=== PATIENT | male | born 1980 | race Caucasian/White ===

== ENCOUNTER 2025-04-24 17:26 | Emergency (ER) | payer BC, SELFPAY ==
--- NOTE | 2025-04-24 17:32 | EKG_ITS ---
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
[2025-04-24 17:41] VITALS: BP 160/101; PULSE 93; RESP 19; TEMP 36.9; O2SAT 95
--- NOTE | 2025-04-24 17:59 | XR_ITS ---
Examination: CT brain head without contrast. 2-D sagittal coronal reconstructions Date and time of exam: April 24, 2025, 1812 hours INDICATIONS: Dizziness and nausea episodes today CTDI: vol (mGy): 53.8 DLP: (mGycm): 1108 Technique: Multiple CT axial sections of the brain have been obtained, 5 mm slice thickness. Contrast has not been administered. 2-D sagittal, coronal reconstructions have been obtained Low dose protocols were performed. One or more of the following dose reduction techniques were used; automated exposure control, adjustment of the mA and/or KV according to patient size, use of iterative reconstruction technique. Findings: No significant ventricular enlargement. Intra-axial or extra-axial hemorrhage density is not seen. No mass effect or midline shift Basal cisterns are not remarkable. Fourth ventricle is midline. Cranial vault intact. Impression: Negative for acute hemorrhage, mass effect or midline shift Advise clinical correlation and follow-up accordingly
--- NOTE | 2025-04-24 18:01 | PD.EDADULT ---
ED General RME/HPI General Chief complaint: Syncope / Near Syncope Stated complaint: Syncope in car Time Seen by Provider: 04/24/25 18:05 Arrival date/time: 04/24/25 17:26 RME / HPI RME / HPI narrative: Mannei is a 45 y/o male with PMHx of HTN who comes in for evaluation of new onset of syncope, duration of 4-5 seconds, while he was in the car, with associated nausea and weakness and headache. Pt reports that he has never had this before and that he was at a car show earlier and that he had dinner earlier as well. He did have presyncopal feelings of weakness and nausea before he had passed out. He came to the ER with his to get further evaluated. Denies any history of seizures or previous strokes. He does say that he has pain with certain eye movements, particularly upright gaze. He says the symptoms are all new to him. He is not taking any medicines at this time. No other complaints at this time. Related Data Previous Rx's ?Medication ?Instructions ?Recorded levetiracetam 500 mg tablet 500 mg PO BID #30 tabs 04/24/25 (Keppra) Allergies Allergy/AdvReac Type Severity Reaction Status Date / Time No Known Allergies Allergy Verified 04/24/25 17:31 Review of Systems Review of Systems Narrative Review of Systems: 12 point ROS reviewed and is otherwise negative unless stated directly in the HPI ED Exam Narrative Physical exam: General: AAOx3, NAD, HEENT: Moist mucous membranes, conjunctiva clear, EOMI, PERRLA, Cardiovascular: S1, S2, radial pulses +2 bilat, RRR Pulmonary: CTAB bilat no cough, no wheezing GI: No tenderness to light or deep palpitation, no guarding, rigidity, rebound tenderness or distension Extremities: No presence of trace or pitting edema in lower extremities bilaterally, dorsalis pedis pulses +2 bilaterally Neuro: AAOx3, no focal motor or sensory deficits in the UE or LE bilat, some paint with upright gaze bilat Psych: Good judgement, thought and behavior Course Quality Measures none Orders Category Date Time Status CT Screening NOW Care 04/24/25 19:40 Completed EKG (ED ONLY) *Do not use* NOW Care 04/24/25 17:33 Completed Insert IV NOW Care 04/24/25 18:00 Completed Orthostatic Vitals X1 Care 04/24/25 17:[address] angio carotid w head w Stat Exams 04/24/25 19:[address] head/brain wo con Stat Exams 04/24/25 17:59 Completed EKG (ED Only) Stat Exams 04/24/25 17:32 Draft CBC Stat Lab 04/24/25 18:25 Completed CMP [Comprehensive Metabolic Panel] Stat Lab 04/24/25 18:25 Completed Drug Screen,Urine Stat Lab 04/24/25 20:03 Completed Mag [Magnesium] Stat Lab 04/24/25 18:25 Completed Phosphorous Stat Lab 04/24/25 18:25 Completed Urinalysis, C/S if Indicated Stat Lab 04/24/25 20:03 Completed Midazolam Inj [Versed Inj] Med 04/24/25 19:41 Discontinued 1 mg IVP X1 ONE Ondansetron Odt [Zofran Odt] Med 04/24/25 17:59 Discontinued 4 mg PO X1 ONE Sodium Chloride 0.9% 1000 ml [Ns] 1,000 ml Med 04/24/25 18:05 Discontinued IV 999 mls/hr levETIRAcetam INJ [Keppra Inj] Med 04/24/25 21:21 Discontinued 1,000 mg IVP X1 ONE Vital Signs Vital signs: Vital Signs Temperature 98.4 F 04/24/25 17:41 Pulse Rate 93 04/24/25 17:41 Respiratory Rate 19 04/24/25 17:41 Blood Pressure 160/101 H 04/24/25 17:41 Pulse Oximetry (%) 95 04/24/25 17:41 Oxygen Delivery Method Room Air 04/24/25 17:41 Discharge Plan Plan Patient Disposition: HOME (Self Care) Discharge Disposition comment: stable Prescriptions/Referrals Prescriptions/Med Rec: New levetiracetam [Keppra] 500 mg tablet 500 mg PO BID Qty: 30 0RF Referrals: Saman Farooq MD [Primary Care Provider, Family Practice] - In 1 week Frantz Dias MD [Physician, Neurology] - In 1 week Referral Note: Patient with new onset seizure placed on Keppra. Please evaluate for consideration of EEG. Problem List Clinical Impression: New onset seizure without head trauma, New onset seizure Impression comment: New onset seizure Patient/Caregiver Discharge Instructions Other Activity Instructions:: Avoid high risk activities. No driving, swimming, cycling, operating machinery until further evaluation by neurologist. Off work x 1 week. Education Materials: ED Seizure New Onset Unknown ... Additional Instructions: Avoid high risk activities. No driving, swimming, cycling, operating machinery until further evaluation by neurologist. Off work x 1 week. Meds as directed Print Language: Ukrainian Stand Alone Forms: Farrah Award Info., Patient Portal Info Letter MDM Narrative MDM hospital course (for use when minimal MDM required): 1750: Head CT ordered, basic labs and Zofran. Will order orthostatic vitals 1800: Case discussed and passed on to Dr. Peter Medication Administration(s) Medication Administration History Discontinued Medications Sodium Chloride (Ns) 1,000 mls @ 999 mls/hr IV .Q1H1M ONE Stop: 04/24/25 19:05 Last Infusion: 04/24/25 20:05 Dose: Infused Documented By: Admin: 04/24/25 19:16 Dose: 999 mls/hr Documented By: BD Levetiracetam (Levetiracetam Inj 100 Mg/Ml Vial 5ml) 1,000 mg IVP X1 ONE Stop: 04/24/25 21:22 Last Admin: 04/24/25 21:34 Dose: 1,000 mg Documented By: CCT Midazolam HCl (Midazolam Inj 1 Mg/Ml Vial 2 Ml) 1 mg IVP X1 ONE Stop: 04/24/25 19:42 Last Admin: 04/24/25 20:22 Dose: 1 mg Documented By: CCT Ondansetron HCl (Ondansetron Odt 4 Mg Tabrap) 4 mg PO X1 ONE; Protocol Stop: 04/24/25 18:00 Last Admin: 04/24/25 19:16 Dose: 4 mg Documented By: BD Diagnosis Diagnoses ruled out and/or further discussions: Reflex syncope, orthostatic syncope, vertigo, cardiac syncope, weakness, brain hemorrhage
--- NOTE | 2025-04-24 18:09 | PD.EDADDENDU ---
Emergency Room Addendum Addendum Narrative: 1800: Care assumed from Dr. Rojo (emergency resident physician). Past medical, surgical, social and family history reviewed. Vitals and home medications reviewed. Results and treatment plan discussed. I will assume the care of the patient at this time and will follow the patient, pending CT. The following addendum documentation note is intended to reflect any pending information, findings, or radiology results not included in the patient?s initial chart by the previous shift scribe. RADIOLOGY Head/Brain CT: Findings: No significant ventricular enlargement. Intra-axial or extra-axial hemorrhage density is not seen. No mass effect or midline shift Basal cisterns are not remarkable. Fourth ventricle is midline. Cranial vault intact. Impression: Negative for acute hemorrhage, mass effect or midline shift Advise clinical correlation and follow-up accordingly Patient presenting acute onset nausea followed by LOC with associated extensor posture and LUE tremulousnous lasting approximately 5-10 minutes with subsequent confusion/slow to response. Patient also complaintof intermittent MAS left temp region several monthphotosensitivity No fever chills or flu like symptoms PMH: HTN off medication for extendde Saige and Appendi Allergies: None Social: [place] PE: somulant, arousable, appro interactive, speak slightly delayed NEURO: normal finger to nose, gait no observed.
[2025-04-24 18:34] LABS: Basophils # (Auto) 0.1 Thou/mm3 (0.0-0.2); Basophils % (Auto) 1 % (0-2.5); Eosinophils # (Auto) 0.4 Thou/mm3 (0.0-0.5); Eosinophils % (Auto) 4 % (0-10); Hematocrit 46.8 % (41.0-53.0); Hemoglobin 16.0 g/dL (13.5-16.0); Immature Granulocytes Auto 0.04 Thou/mm3 (0.00-0.00); Lymphocytes # (Auto) 4.4 Thou/mm3 (1.0-4.8); Lymphocytes % (Auto) 41 % (10-50); Mean Corpuscular HGB Conc 34.2 g/dl (31.0-37.0); Mean Corpuscular Hemoglobin 30.0 pg (25.0-35.0); Mean Corpuscular Volume 88 fL (80-100); Monocytes # (Auto) 0.9 Thou/mm3 (0.0-0.8); Monocytes % (Auto) 8 % (0-12); Neutrophils # (Auto) 4.9 Thou/mm3 (1.8-7.7); Neutrophils % (Auto) 46 % (37-80); Nucleated Red Blood Cell # 0.00 Thou/mm3 (0.00-0.00); Nucleated Red Blood Cell % 0 /100 WBC (0); Platelet Count 288 Thou/mm3 (140-440); RDW Standard Deviation 38.9 fL (35.1-43.9); Red Blood Count 5.34 Miln/mm3 (4.50-5.90); White Blood Count 10.7 Thou/mm3 (3.8-10.6)
[2025-04-24 18:51] LABS: Alanine Aminotransferase 44 U/L (10-49); Albumin, Serum 4.6 gm/dL (3.5-5.0); Albumin/Globulin Ratio 1.6 (1.2-2.2); Alkaline Phosphatase 69 U/L (46-116); Anion Gap 11 (7-16); Aspartate Amino Transferase 33 U/L (0-34); BUN/Creatinine Ratio 7 Ratio (12-20); Bilirubin,Total 0.3 mg/dL (0.3-1.2); Blood Urea Nitrogen 8 mg/dL (9-23); Calcium 9.3 mg/dL (8.3-10.6); Calcium (Corrected) 9.3 mg/dL (8.5-10.1); Carbon Dioxide 26.1 mMol/L (20.0-31.0); Chloride 105 mMol/L (98-107); Creatinine (Component) 1.2 mg/dL (0.6-1.3); Globulin 2.8 gm/dL (2.3-3.5); Glucose 109 mg/dL (74-106); Magnesium 2.0 mg/dL (1.6-2.6); Osmolality,Calculated 282 (275-295); Phosphorous 3.0 mg/dL (2.4-5.1); Potassium 3.6 mMol/L (3.4-5.1); Sodium 142 mMol/L (136-145); Total Protein 7.4 gm/dL (5.7-8.2); eGFR > 60 See Note
[2025-04-24] MEDS: ONDANSETRON ODT 4 MG TABRAP PO (19:16)
[2025-04-24] MEDS: SODIUM CHLORIDE 0.9% 1000 ML 1,000 ML 999 ML IV (19:16)
--- NOTE | 2025-04-24 19:37 | PD.EDSYNC ---
ED Syncope RME/HPI General Chief Complaint: Syncope / Near Syncope Stated Complaint: Syncope in car Time Seen by Provider: 04/24/25 18:05 Arrival date/time: 04/24/25 17:26 RME / HPI RME / HPI narrative: Mannie is a 45 y/o male with PMHx of HTN who comes in for evaluation of new onset of syncope, duration of 4-5 seconds, while he was in the car, with associated nausea and weakness and headache. Pt reports that he has never had this before and that he was at a car show earlier and that he had dinner earlier as well. He did have presyncopal feelings of weakness and nausea before he had passed out. He came to the ER with his to get further evaluated. Denies any history of seizures or previous strokes. He does say that he has pain with certain eye movements, particularly upright gaze. He says the symptoms are all new to him. He is not taking any medicines at this time. No other complaints at this time. DR. TARANGO MAIN ED EVALUATION: Patient presenting with acute onset nausea followed by LOC with associated extensor posture and LUE tremulousness lasting approximately 5-10 minutes with subsequent confusion/slow to response. Patient also complains of intermittent MAS at the left temporal region lasting several months with associated photosensitivity. No fever, chills, or flu-like symptoms. PMH: HTN off medication for extended PSH: Appendectomy, Cholecystectomy Allergies: None Social: Non-smoker, Non-drinker, No illicit drug use Related Data Previous Rx's ?Medication ?Instructions ?Recorded levetiracetam 500 mg tablet 500 mg PO BID #30 tabs 04/24/25 (Keppra) Allergies Allergy/AdvReac Type Severity Reaction Status Date / Time No Known Allergies Allergy Verified 04/24/25 17:31 Review of Systems Review of Systems Systems Reviewed: All systems reviewed, normal except as documented Past Medical History Past Medical History CARDIAC: Positive Hypertension RESPIRATORY: Positive Asthma GASTROINTESTINAL: Positive Gastroesophageal Reflux Disease Surgical History SURGICAL: Positive Open Reduction Internal Fixation and Vasectomy ED Exam Narrative Physical exam: GEN. APPEARANCE: The patient is alert awake oriented X-3 in no distress, lying down comfortably, does not look ill/toxic. Patient has good eye contact. Patient is cooperative. Appears somulant, arousable, appropriately interactive, speech slightly delayed. VITALS: All vitals were reviewed and the pulse ox is 95% on room air which is normal according to my interpretation. HEENT: Normocephalic, atraumatic. Pupils are equal and reactive. Oral mucosa is moist. Patent Nares NECK: Supple, nontender, no thyromegaly, no meningismus, no JVD, no step offs CHEST: Symmetrical, atraumatic, and with equal expansion , Nontender on palpation no deformity and no crepitus. CARDIOVASCULAR: Heart regular rhythm no murmur or gallop rub or extra beats. LUNGS: Clear to auscultation bilaterally with symmetrical chest rise. No laboring tachypnea or wheezing. No intercostal subcostal retraction. No rales and no rhonchi. ABDOMEN: Soft, flat, nontender to palpation, no guarding or rebound tenderness. There are no abnormal masses palpated. Active and normal bowel sounds. EXTREMITIES: Nontender. No edema. No cyanosis. Patient is able to move all 4 extremities well, with full ROM and good CSM. SKIN: Warm and dry, no jaundice or rashes noted. MUSCULOSKELETAL: No lubar or midline bony tenderness. There is no CVA tenderness. No paraspinal muscle spasm or tenderness. NEURO: Patient is BRAUN x 4, Cranial nerves II through XII grossly intact. There is no focal neurologic deficits noted. GCS is 15, PNS and [employer] appear grossly intact. Normal finger to nose, gait not observed. PSYCHIATRIC: Patient is in normal mood and affect, cooperative, no SI or HI or hallucinations. Course Quality Measures none Orders Category Date Time Status CT Screening NOW Care 04/24/25 19:40 Active EKG (ED ONLY) *Do not use* NOW Care 04/24/25 17:33 Completed Insert IV NOW Care 04/24/25 18:00 Active Orthostatic Vitals X1 Care 04/24/25 17:[address] angio carotid w head w Stat Exams 04/24/25 19:[address] head/brain wo con Stat Exams 04/24/25 17:59 Completed EKG (ED Only) Stat Exams 04/24/25 17:32 Draft CBC Stat Lab 04/24/25 18:25 Completed CMP [Comprehensive Metabolic Panel] Stat Lab 04/24/25 18:25 Completed Drug Screen,Urine Stat Lab 04/24/25 20:03 Completed Mag [Magnesium] Stat Lab 04/24/25 18:25 Completed Phosphorous Stat Lab 04/24/25 18:25 Completed Urinalysis, C/S if Indicated Stat Lab 04/24/25 20:03 Completed Midazolam Inj [Versed Inj] Med 04/24/25 19:41 Discontinued 1 mg IVP X1 ONE Ondansetron Odt [Zofran Odt] Med 04/24/25 17:59 Discontinued 4 mg PO X1 ONE Sodium Chloride 0.9% 1000 ml [Ns] 1,000 ml Med 04/24/25 18:05 Discontinued IV 999 mls/hr levETIRAcetam INJ [Keppra Inj] Med 04/24/25 21:21 Discontinued 1,000 mg IVP X1 ONE Vital Signs Vital signs: Vital Signs Temperature 98.4 F 04/24/25 17:41 Pulse Rate 93 04/24/25 17:41 Respiratory Rate 19 04/24/25 17:41 Blood Pressure 160/101 H 04/24/25 17:41 Pulse Oximetry (%) 95 04/24/25 17:41 Oxygen Delivery Method Room Air 04/24/25 17:41 Syncope MDM Narrative MDM Narrative:: Scribe Attestation: IAileen am scribing for and in the presence of Dr. Tarango. Provider Notation: Although this document has been carefully reviewed, there may still be some phonetic and other typographical errors. These errors are purely grammatical due to imperfections in the software program and should not be construed in any way to compromise the substance of the patient's medical care during this visit. Patient presenting with acute onset nausea followed by LOC with associated extensor posture and LUE tremulousness lasting approximately 5-10 minutes with subsequent confusion/slow to response. Patient also complains of intermittent MAS at the left temporal region lasting several months with associated photosensitivity. Please see PE findings. Laboratory markers including CBC and serum chemistries, UA, and toxicological profile negative. Underwent CT and CTA of brain with no acute process. Patient was placed on seizure precautions, IV established, IV saline given, and treated with low-dose benzodiazepines prior to being loaded with Keppra. Patient remained seizure-free will refer for outpatient eeg and neurological evaluation. Will recommend patient avoid driving, swimming, and other high-risk activities. Final diagnosis includes new onset seizure. Patient will be discharged with Keppra 500 mg BID. Patient data External records reviewed:: [facility] previous records (Reviewed prior ED records from 01/01/23. Patient was seen for Acute cholecystitis.) Clinical information provided by:: patient Social determinants that could affect healthcare access:: none Patient has the following chronic illnesses:: HTN, GERD, Asthma How is presenting disease/condition affected by chronic disease/condition?: uneffected by Evaluation data The following diagnostics were reviewed and interpreted by me:: lab results, radiology exam(s) and EKG tracing(s) Lab and/or radiology exams considered but not ordered:: None Interpretation Summary: RADIOLOGY Head/Brain CT: Findings: No significant ventricular enlargement. Intra-axial or extra-axial hemorrhage density is not seen. No mass effect or midline shift Basal cisterns are not remarkable. Fourth ventricle is midline. Cranial vault intact. Impression: Negative for acute hemorrhage, mass effect or midline shift Advise clinical correlation and follow-up accordingly CT Angio Carotid with Head: Findings: No significant common carotid carotid bifurcation or internal carotid artery stenoses Codominant vertebral arteries in the neck with no critical stenoses Intracranial vertebral arteries basilar artery posterior cerebral branches fill with no large vessel occlusions Juxtasellar supraclinoid portions internal carotid arteries, M1 segments middle cerebral arteries middle cerebral artery trifurcation vessels and anterior cerebral arteries fill with no large vessel occlusions IMPRESSION: No significant neck arterial stenoses No cerebral large vessel arterial occlusions Consider brain MRI/MRA without contrast, stroke protocol, follow-up Medications / Prescriptions Medications or Prescriptions considered but not ordered:: None Medication administrations:: Medication Administration History Discontinued Medications Sodium Chloride (Ns) 1,000 mls @ 999 mls/hr IV .Q1H1M ONE Stop: 04/24/25 19:05 Last Infusion: 04/24/25 20:05 Dose: Infused Documented By: Admin: 04/24/25 19:16 Dose: 999 mls/hr Documented By: BD Levetiracetam (Levetiracetam Inj 100 Mg/Ml Vial 5ml) 1,000 mg IVP X1 ONE Stop: 04/24/25 21:22 Midazolam HCl (Midazolam Inj 1 Mg/Ml Vial 2 Ml) 1 mg IVP X1 ONE Stop: 04/24/25 19:42 Last Admin: 04/24/25 20:22 Dose: 1 mg Documented By: CCT Ondansetron HCl (Ondansetron Odt 4 Mg Tabrap) 4 mg PO X1 ONE; Protocol Stop: 04/24/25 18:00 Last Admin: 04/24/25 19:16 Dose: 4 mg Documented By: BD See above if any Consultations Consultation(s) initiated? (list below): No Diagnosis Syncope Differential Diagnosis: syncope due to orthostatic hypotension, vasovagal syncope, complete atrioventricular block, subarachnoid hemorrhage, pulmonary embolism, dehydration and other (New Onset Seizure) Most likely diagnosis given after review of the tests above:: New onset seizure Admission Indicated Admission indicated?: not indicated Explain why admission is indicated or not indicated:: Patient does not meet admission criteria Admission Request Was there a request for admission?: No Disposition Plan Disposition Plan: Discharge Discharge Attestation Discharge Attestation: The patient and all family members were given an opportunity to ask questions and understood the discharge instructions. Discharge instructions specifically effects, indications for sooner follow up or return to the emergency department, and the expected course of current diagnosis. Patient condition: Stable Discharge Plan Plan Patient Disposition: HOME (Self Care) Discharge Disposition comment: stable Prescriptions/Referrals Prescriptions/Med Rec: New levetiracetam [Keppra] 500 mg tablet 500 mg PO BID Qty: 30 0RF Referrals: Saman Farooq MD [Primary Care Provider, Family Practice] - In 1 week Frantz Dias MD [Physician, Neurology] - In 1 week Referral Note: Patient with new onset seizure placed on Keppra. Please evaluate for consideration of EEG. Problem List Clinical Impression: New onset seizure without head trauma, New onset seizure Impression comment: New onset seizure Patient/Caregiver Discharge Instructions Other Activity Instructions:: Avoid high risk activities. No driving, swimming, cycling, operating machinery until further evaluation by neurologist. Off work x 1 week. Education Materials: ED Seizure New Onset Unknown ... Additional Instructions: Avoid high risk activities. No driving, swimming, cycling, operating machinery until further evaluation by neurologist. Off work x 1 week. Meds as directed Print Language: Hungarian Stand Alone Forms: Farrah Award Info., Patient Portal Info Letter
--- NOTE | 2025-04-24 19:38 | XR_ITS ---
Examination: CTA carotids with intravenous contrast CTA brain, head with intravenous contrast. 2-D sagittal, coronal reconstructions. 3-D reconstructions. Exam date and time: April 24, 20252004 hours INDICATIONS: New onset headaches seizure today CTDI: vol (mGy) 21.27 DLP: (mGycm) 563 Technique: Multiple CTA axial brain, head carotid images post intravenous contrast injection 75 cc, Isovue-[id number]. 2-D sagittal, coronal reconstructions. 3-D reconstructions, 3-D post processing including vascular maximum intensity projection images. Low dose protocols were performed. One or more of the following dose reduction techniques were used; automated exposure control, adjustment of the mA and/or KV according to patient size, use of iterative reconstruction technique. Findings: No significant common carotid carotid bifurcation or internal carotid artery stenoses Codominant vertebral arteries in the neck with no critical stenoses Intracranial vertebral arteries basilar artery posterior cerebral branches fill with no large vessel occlusions Juxtasellar supraclinoid portions internal carotid arteries, M1 segments middle cerebral arteries middle cerebral artery trifurcation vessels and anterior cerebral arteries fill with no large vessel occlusions IMPRESSION: No significant neck arterial stenoses No cerebral large vessel arterial occlusions Consider brain MRI/MRA without contrast, stroke protocol, follow-up
[2025-04-24 19:47] VITALS: BP 138/93; PULSE 91; RESP 19; TEMP 36.9; O2SAT 99
[2025-04-24 20:02] VITALS: BMI 28.1
--- NOTE | 2025-04-24 20:07 | PC.NURSE ---
Pt taken to CT via brayden
[2025-04-24 20:09] LABS: Collection Type, Urine Catheter; Squamous Epithelial Cell,Urine 0 /hpf (0-5)
[2025-04-24 20:22] LABS: Amphetamine/Methamp Scrn,U Negative (Negative); Barbiturate Screen,Urine Negative (Negative); Benzodiazepines Screen,Urine Negative (Negative); Benzoylecgonine Screen, Ur Negative (Negative); Fentanyl Screen,Urine Negative (Negative); Opiate Screen,Urine Negative (Negative); THC Screen,Urine Negative (Negative)
[2025-04-24] MEDS: MIDAZOLAM INJ 1 MG/ML VIAL 2 ML IVP (20:22)
[2025-04-24 20:53] LABS: Bilirubin,Urine Negative (Negative); Blood,Urine Negative (Negative); Clarity,Urine Clear (Clear/Hazy); Color,Urine Yellow (Lt Yel-Yel); Culture Indicated,Urine Not Indicated; Glucose, Urine Negative (Negative); Ketones,Urine Negative (Negative); Leukocyte Esterase,Urine Negative (Negative); Nitrite,Urine Negative (Negative); PH,Urine 6.0 (5.0-7.0); Protein,Urine Negative (Neg - Trace); RBC,Urine 5 /hpf (0-3); Specific Gravity,Urine 1.024 (1.001-1.035); Urobilinogen,Urine Negative mg/dL (0.0-1.0); WBC,Urine 1 /hpf (0-5)
[2025-04-24] MEDS: levETIRAcetam INJ 100 MG/ML VIAL 5ML 1000 MG IVP (21:34)
[2025-04-24 21:43] VITALS: BP 139/92; PULSE 88; RESP 20; TEMP 36.6; O2SAT 96
== END 2025-04-24 22:15 | disposition home or self-care (01) ==
PROVIDERS: Emergency Provider Emergency Medicine; PCP Family Medicine
DX: I61.9 Nontraumatic intracerebral hemorrhage, unspecified (principal); I10 Essential (primary) hypertension; R56.9 Unspecified convulsions
CPT/HCPCS: 36415; 70450; 70496; 70498; 80053; 80307; 81001; 83735; 84100; 85025; 93005; 96361; 96374; 96375; 99284; A4649; J1953; J2250; J7030; Q0162; Q9967

== ENCOUNTER → 2025-06-28 | Outpatient (CLI) | payer BC, SELFPAY ==
--- NOTE | 2025-06-28 13:30 | XR_ITS ---
Examination: MRI of brain without intravenous contrast. MRI brain with intravenous contrast. Date and time of exam: June 28, 2025, 1352 hours INDICATIONS: New onset seizure April 24, 2025 Technique: Multiple axial and sagittal images of the brain to been obtained. Siemens high-resolution 1.52 Daniela short bore scanner utilized. Sagittal sections, T1 weighted images, TR 500, TE 14, are performed. Axial sections proton-density and T2-weighted images have been obtained. Inversion recovery axial images, TR 9260, TE 111, TR 2500. Diffusion weighted images, axial sections, TR 4800, TE 128, B value 1000. Axial sections, ADC map, TR 4800, TE 128. Axial and coronal images were also obtained post 17 cc gadolinium administered intravenously. Findings:: Enlargement of the sella turcica is not present. The optic chiasm and infundibular stalk are not remarkable. There is no localized enlargement of the medulla or linda. Fourth ventricle and cerebellar tonsils appear normal in position. No subacute area of hemorrhage density is seen. Fourth ventricle is midline. Mass in the cerebellopontine angle region is not evident. 7th and 8th nerve complexes exhibit symmetry Globes are symmetrical Orbital musculature including medial lateral rectus muscles do not exhibit abnormality Suspicious for scattered punctate foci increased signal in the right frontal white matter FLAIR image 14 and 13 Effacement of the cortical sulcal markings is not identified. Mass effect upon the ventricular system is not identified. Diffusion-weighted images demonstrate no focus of restricted diffusion Contrast images demonstrate no abnormal enhancement Impression: Negative for acute hemorrhage, mass effect or midline shift No acute infarct Subtle scattered punctate foci increased signal in the right frontal white matter, consider demyelinating disease
== END | disposition home or self-care (01) ==
PROVIDERS: PCP Family Medicine; Referring Provider Psychiatry & Neurology Neurology; Visit Provider Psychiatry & Neurology Neurology
DX: R90.82 White matter disease, unspecified (principal)
CPT/HCPCS: 70553; A9577